=== PATIENT | female | born 1955 ===

== ENCOUNTER 2018-04-02 07:49 | Inpatient (IN) | payer OTHER ==
[~2018-04-02] VITALS: Ht 165.1 cm; Wt 94.8 kg
[~2018-04-02 07:49] MED LIST: BENICAR5 MG PO
[2018-04-02] MEDS ORDERED: ALDACTONE25 MG PO (09:48)
[2018-04-02] MEDS ORDERED: CARVEDILOL25 MG PO (09:48)
[2018-04-02] MEDS ORDERED: CANDESARTAN-HC1 EAC1 PO (09:48)
[2018-04-02] MEDS ORDERED: LIPITOR20 MG PO (09:49)
[2018-04-02] MEDS ORDERED: ASA81 MG PO (09:49)
[2018-04-02] MEDS ORDERED: LASIX20 MG PO (09:49)
[2018-04-02] MEDS ORDERED: LYRICA150 MG PO (09:49)
== END 2018-04-09 14:14 | DRG 470 ==
LOC: O/R 04-07 05:45 → SURG 04-07 05:45 → CIR.AMB 04-07 07:48 → EDSTATUS 04-07 08:01 → SURG 04-07 08:04
PROVIDERS: Orthopaedic Surgery
PROC: 0SRD0J9 Replacement of Left Knee Joint with Synthetic Substitute, Cemented, Open Approach (ICD-10-PCS; principal; 2018-04-07 07:00)
DX: M17.12 Unilateral primary osteoarthritis, left knee (principal); D62 Acute posthemorrhagic anemia; I10 Essential (primary) hypertension

== ENCOUNTER 2018-09-04 07:46 | Outpatient (CLI) | payer OTHER ==
[~2018-09-04 07:46] MED LIST changes: +ALDACTONE25 MG PO; +ASA81 MG PO; +CANDESARTAN-HC1 EAC1 PO; +CARVEDILOL25 MG PO; +LASIX20 MG PO; +LIPITOR20 MG PO; +LYRICA150 MG PO
== END 2018-09-04 07:58 | disposition home or self-care (01) ==
LOC: TOM 07:46
DX: N20.0 Calculus of kidney (principal); D35.02 Benign neoplasm of left adrenal gland; E34.8 Other specified endocrine disorders; E27.5 Adrenomedullary hyperfunction

== ENCOUNTER 2021-12-05 10:06 | Outpatient (CLI) | payer OTHER | END 2021-12-05 10:08 | disposition home or self-care (01) | LOC: LAB 10:06 | PROVIDERS: ATTEND Radiology Diagnostic Radiology | DX: R10.2 Pelvic and perineal pain (principal) ==

== ENCOUNTER 2021-12-06 08:14 | Outpatient (CLI) | payer OTHER | END 2021-12-06 08:24 | disposition home or self-care (01) | LOC: TOM 08:14 | PROVIDERS: ATTEND Obstetrics & Gynecology | DX: R10.2 Pelvic and perineal pain (principal); R10.84 Generalized abdominal pain | CPT/HCPCS: 74177; Q9965 ==